=== PATIENT | male | born 2000 | race Caucasian/White ===

== ENCOUNTER 2024-07-03 05:25 | Emergency (ER) | payer OTHER, SELFPAY ==
[2024-07-03 05:29] VITALS: BP 164/108
[2024-07-03 08:06] VITALS: BP 142/86
[2024-07-03 08:07] VITALS: BMI 39.7
[2024-07-03 08:11] VITALS: BP 142/86
[2024-07-03 08:53] LABS: % Basophils 0.6 % (0-2); % Eosinophils 1.5 % (0-6); % Immature Granulocytes 0.5 % (0-0.5); % Lymphocytes 21.8 % (20.5-51.1); % Monocytes 5.2 % (1.7-9.3); % Neutrophils 70.4 % (42.2-75.2); Absolute Basophils 0.1 10^3/uL (0-0.2); Absolute Eosinophils 0.2 10^3/uL (0-0.7); Absolute Immature Granulocytes 0.1 10^3/uL (0-0.05); Absolute Lymphocytes 2.3 10^3/uL (1.2-3.4); Absolute Monocytes 0.6 10^3/uL (0.1-0.6); Absolute Neutrophils 7.5 10^3/uL (1.4-6.5); Hematocrit 44.2 % (39.0-52.0); Hemoglobin 15.4 g/dL (13.0-18.0); Mean Corp Hgb Conc. 34.8 g/dL (33.0-37.0); Mean Corpuscular Hgb 29.4 pg (27.0-31.0); Mean Corpuscular Volume 84.5 fL (80.0-94.0); Mean Platelet Volume 9.4 fL (7.4-10.4); Nucleated Red Blood Cells % 0 % (-); Platelet Count 260 10^3/uL (130-400); Red Blood Cell Count 5.23 10^6/uL (4.70-6.10); Red Cell Dist. Width 12.2 % (11.5-14.5); White Blood Cell Count 10.7 10^3/uL (4.8-10.8)
[2024-07-03 09:02] LABS: Blood Urea Nitrogen 17 mg/dl (9-20); Calcium 9.4 mg/dl (8.4-10.2); Carbon Dioxide 24 mmol/L (22-30); Chloride 107 mmol/L (98-107); Estimated Creatinine Clearance > 125 ml/min; Glucose 104 mg/dl (70-99); Potassium 4.1 mmol/L (3.5-5.1); Sodium 143 mmol/L (135-145); eGFR > 60.00
--- NOTE | 2024-07-03 09:04 | ED.GENMED ---
History of Present Illness
General
Chief Complaint: Cough
Time Seen by Provider: 07/03/24 07:55
History of Present Illness
History of Present Illness:
24-year-old male with history of melanoma status post local excision and lymph node dissection currently in remission presents to the emergency department for evaluation of gross hemoptysis. States he has been having progressively worsening
left-sided chest pain for the past several months that over the past few weeks he has felt dyspnea on exertion. Had a small trivial amount of hemoptysis last night but much more this morning. Denies any recent nosebleeds. No recent URI symptoms
or coughing. Former smoker quit 1 year ago after 10+ years. Does not currently vape. No night sweats or weight loss
Review of Systems
Review of Systems
Allergies reviewed?: Yes
All Other Systems: ROS reviewed and negative except as documented in HPI and ROS
Phy Exam
Physical Exam
Physical Exam:
GEN: Well appearing, NAD, WDWN
HEENT: Oral mucosa moist, no scleral icterus
Cardiac: Mildly tachycardic, regular
Lung: No respiratory distress, no tachypnea, lungs clear to auscultation bilaterally
MSK: No gross deformity or injuries
Skin: Good color, no pallor or jaundice, no rashes
Neuro: AO x3, moves all extremities freely
Psych: Anxious and tremulous
Course
Orders/Labs/Results
Orders:
Orders
07/03/24 06:05
CR Chest - 2 Views Urgent
Comment:
Reason For Exam: sob
07/03/24 08:03
Electrocardiogram (*1) Urgent
Reason for Study: Tachycardia
EKG- Treatment ONCE
07/03/24 08:39
Basic Metabolic Panel Urgent
Complete Blood Count/With Diff Urgent
D-Dimer Urgent
07/03/24 10:09
CT Chest With Iv Contrast Urgent
Comment:
Reason For Exam: hemoptysis, prior malignancy
Abnormal Lab Results
07/03/24
08:39
Abs Immat Gran (auto) 0.1 H 10^3/uL
(0-0.05)
Absolute Neuts (auto) 7.5 H 10^3/uL
(1.4-6.5)
Glucose 104 H mg/dl
(70-99)
07/03/24 08:39
07/03/24 08:39
Vital Signs
Initial and Last Documented VS:
Initial Vital Signs
Temp Pulse Resp BP Pulse Ox
98.4 F 118 20 164/108 98
07/03/24 05:29 07/03/24 05:29 07/03/24 05:29 07/03/24 05:29 07/03/24 05:29
Last Documented Vital Signs
Temp Pulse Resp BP Pulse Ox
98.2 F 97 23 137/85 100
07/03/24 08:11 07/03/24 11:28 07/03/24 11:25 07/03/24 11:25 07/03/24 11:28
MDM/Problems Addressed
MDM/Problems Addressed:
Due to complaints of chest pain with gross hemoptysis in the absence of URI symptoms and D-dimer was obtained which was reassuring. Nevertheless a CT scan was then obtained given patient's remote history of malignancy, this showed no evidence of
acute pulmonary disease however splenomegaly was noted which may be causing his left lower chest pain. Recommend outpatient primary care follow-up
*Critical Care Note
Total Time (30-74mins, 75-104mins- exclusive of procedures): Not Applicable
ED Attending Note
-
Portions of this chart may have been created with voice recognition software.� Occasional wrong word or��sound alike� substitutions may have occurred due to the inherent limitations of voice recognition software.
Discharge Plan
Departure
Patient Disposition: Home (Routine Discharge)
Date of Disposition: 07/03/24
Time of Disposition: 11:19
Patient with high blood pressure during this ER visit?: No
Discharge Problem:
Hemoptysis, Splenomegaly
Instructions: Coughing up blood
Referrals:
Tony Bradshaw MD [Active] -
NONE,* [Family Provider] -
Interventions
Interventions:
*Risk Screen - Suicide Last Done: 07/03/24 09:20
*General Assessment Last Done: 07/03/24 08:07
*Neglect/Abuse Screening Last Done: 07/03/24 09:20
*ED- Fall Risk Assessment Last Done: 07/03/24 08:07
*ED COVID-19 Vaccine History Last Done: 07/03/24 08:07
*Nursing Disposition Last Done: 07/03/24 11:30
ED- Pulmonary Assessment Last Done: 07/03/24 08:07
Discharge Date and Time
Discharge Date/Time: 07/03/24 11:32
Print Language: PARAGUAYAN
[2024-07-03 10:07] LABS: D-Dimer < 0.27 ug/mlFEU (0.00-0.50)
[2024-07-03 11:25] VITALS: BP 137/85
== END 2024-07-03 11:32 | disposition home or self-care (01) ==
LOC: EMR 05:25
PROVIDERS: Physician Assistant; EMERGENCY PHYSICIAN Emergency Medicine
DX: R04.2 Hemoptysis (principal); R16.1 Splenomegaly, not elsewhere classified; Z87.891 Personal history of nicotine dependence
CPT/HCPCS: 99285; 71046; 71260; 80048; 85025; 85379; 93005; Q9967